=== PATIENT | male | born 1975 | race Caucasian/White ===

== ENCOUNTER 2016-07-20 20:20 | Inpatient (IN) | payer OTHER ==
[~2016-07-20] VITALS: Ht 182.9 cm; Wt 92.0 kg
[~2016-07-20 20:20] MED LIST: ADDERALL XR 1010 MG PO; ADDERALL XR 2020 MG PO; ANAPROX DS550 M1 PO; DEPAKOTE500 MG PO; MOTRIN600 MG PO; NORCO 5/3251 TABLET PO; PRIMATENE MIST15 M1 IH; PROAIR HFA8.5 GM IH; PROMETHAZINE HC25 M1 PO; ROBITUSSIN AC,T10 ML PO; TOPIRAMATE25 MG PO; VENTOLIN17 GM
[2016-07-20 21:17] LABS: BASOPHIL COUNT 0.1 K/uL (0-0.1); CHLORIDE 111 mEq/L (99-109); EOSINOPHIL (%) 2.3 % (0-5); EOSINOPHIL COUNT 0.2 K/uL (0-0.3); HEMATOCRIT 53.1 % (38.0-50.0); IMMATURE GRANULOCYTE (%) 0.5 % (0.0-0.7); IMMATURE GRANULOCYTE COUNT 0.1 K/uL; INSTRUMENT ABS NEUTROPHIL CT 4.5 K/uL; LYMPHOCYTE COUNT 4.1 K/uL (1.0-2.8); MCH 30.7 PG (29.0-34.0); MCHC 34.8 G/DL (30.0-36.0); MCV 88.2 FL (86-99); MEAN PLAT.VOLUME 9.8 uM^3 (9.0-12.4); MONOCYTE (%) 5.8 % (3-12); MONOCYTE COUNT 0.6 K/uL (0-0.8); NEUTROPHIL (%) 47.1 % (45-76); NEUTROPHIL COUNT 4.5 K/uL (1.8-6.4); PLATELET COUNT 349 K/uL (156-360); POTASSIUM 3.5 mEq/L (3.7-5.4); RBC DIS.WIDTH-CV 15.2 % (11.8-14.6); RBC DIS.WIDTH-SD 47.8 % (39-53); RED BLOOD COUNT 6.02 M/uL (4.00-5.50); SODIUM 148 mEq/L (136-147); WHITE BLOOD COUNT 9.6 K/uL (4.1-10.2)
[2016-07-20 21:20] LABS: GLUCOSE 104 mg/dL (70-99)
[2016-07-20 21:21] LABS: ANION GAP 14 MEQ/L (2-14); TOTAL BILIRUBIN 0.5 mg/dL (0.0-1.0)
[2016-07-20 21:22] LABS: SERUM ETHYL ALCOHOL 350 mg/dL
[2016-07-20 21:23] LABS: GFR ESTIMATE (CALCULATED) > 59 mL/min/
[2016-07-20 21:24] LABS: UREA NITROGEN (BUN) 5 mg/dL (9-23)
[2016-07-20 21:26] LABS: CREATINE KINASE 93 IU/L (1-294); TOTAL CK 93 IU/L (1-294)
[2016-07-20 21:32] LABS: CK-MB 0.9 ng/mL (0.0-4.9)
[2016-07-20 22:40] LABS: ALKALINE PHOSPHATASE 81 IU/L (3-129)
[2016-07-20] MEDS ORDERED: NORCO 7.5/321 TABLET PO (22:41)
[2016-07-20] MEDS ORDERED: ZONEGRAN100 MG PO (22:42)
[2016-07-20] MEDS ORDERED: TIZANIDINE HCL4 MG PO (22:42)
[2016-07-21 00:10] VITALS: BP 139/115
[2016-07-21] MEDS ORDERED: ZONEGRAN100 MG PO (17:20)
== END 2016-07-21 00:52 | disposition left against medical advice (07) | DRG 101 ==
LOC: EME 20:20 → EDOF 07-21 00:30
PROVIDERS: Emergency Medicine
DX: G40.909 Epilepsy, unspecified, not intractable, without status epilepticus (principal); F10.239 Alcohol dependence with withdrawal, unspecified; Y90.8 Blood alcohol level of 240 mg/100 ml or more; I10 Essential (primary) hypertension; F90.9 Attention-deficit hyperactivity disorder, unspecified type; J45.909 Unspecified asthma, uncomplicated; F17.210 Nicotine dependence, cigarettes, uncomplicated; G89.29 Other chronic pain; M54.5 Low back pain; Z91.14 Patient's other noncompliance with medication regimen
CPT/HCPCS: 70450; 80053; 81003; 82550; 82553; 83735; 85025; 93005; 94640; 99281; 99285; G0480; J1953; J2060; J3411; J3475; J7030; J7050

== ENCOUNTER 2016-07-21 14:14 | Emergency (ER) | payer OTHER ==
[~2016-07-21] VITALS: Ht 182.9 cm; Wt 95.0 kg
[~2016-07-21 14:14] MED LIST changes: +NORCO 7.5/321 TABLET PO; +TIZANIDINE HCL4 MG PO; +ZONEGRAN100 MG PO
[2016-07-21 15:40] LABS: ADD MIUA? YES; BILIRUBIN NEGATIVE; BLOOD NEGATIVE; COLOR AMBER ((YELLOW)); GLUCOSE (STRIP) NEGATIVE; KETONES 5; LEUKOCYTES TRACE; NITRITE NEGATIVE; PROTEIN (STRIP) 100; SPECIFIC GRAVITY 1.029 (1.000-1.030); UROBILINOGEN 0.2 MG/DL (0.2-1.0)
[2016-07-21 15:52] LABS: BACTERIA RARE /HPF; EPITHELIAL CELLS RARE /HPF; HYALINE CASTS TNTC /LPF; MUCUS 1+ /LPF; RED BLOOD CELLS 0-5 /HPF (0-5); UCUL ADDED? NO; WHITE BLOOD CELLS 15-20 /HPF (0-5)
[2016-07-21 15:53] LABS: ADD MEDTOX COMMENT Y; AMPHETAMINE NEGATIVE (500 ng/mL); BARBITURATES NEGATIVE (200 ng/mL); BENZODIAZEPINES PRESUMPTIVE POSITIVE (150 ng/mL); COCAINE NEGATIVE (150 ng/mL); INTERNAL CONTROLS VALID? YES; METHADONE NEGATIVE (200 ng/mL); METHAMPHETAMINE NEGATIVE (500 ng/mL); OPIATES (MORPHINE) PRESUMPTIVE POSITIVE (100 ng/mL); OXYCODONE PRESUMPTIVE POSITIVE (100 ng/mL); PHENCYCLIDINE NEGATIVE (25 ng/mL); PROPOXYPHENE NEGATIVE (300 ng/mL); THC CANNABINOIDS NEGATIVE (50 ng/mL); TRICYCLIC ANTIDEPRESSANTS NEGATIVE (300 ng/mL)
[2016-07-21 16:10] LABS: CHLORIDE 107 mEq/L (99-109); POTASSIUM 3.6 mEq/L (3.7-5.4); SODIUM 143 mEq/L (136-147)
[2016-07-21 16:12] LABS: GLUCOSE 101 mg/dL (70-99)
[2016-07-21 16:13] LABS: ANION GAP 12 MEQ/L (2-14)
[2016-07-21 16:15] LABS: SERUM ETHYL ALCOHOL 155 mg/dL
[2016-07-21 16:16] LABS: ALKALINE PHOSPHATASE 75 IU/L (3-129); GFR ESTIMATE (CALCULATED) > 59 mL/min/
[2016-07-21 16:17] LABS: UREA NITROGEN (BUN) 5 mg/dL (9-23)
[2016-07-21 16:22] LABS: HEMATOCRIT 46.2 % (38.0-50.0); MCH 30.5 PG (29.0-34.0); MCHC 34.2 G/DL (30.0-36.0); MCV 89.2 FL (86-99); PLATELET COUNT 289 K/uL (156-360); RBC DIS.WIDTH-CV 14.7 % (11.8-14.6); RBC DIS.WIDTH-SD 47.7 % (39-53); RED BLOOD COUNT 5.18 M/uL (4.00-5.50); WHITE BLOOD COUNT 10.6 K/uL (4.1-10.2)
[2016-07-21 16:27] LABS: BENZODIAZEPINES QUANT VALUE 0 NG/ML; BENZODIAZEPINES, URINE SCREEN Negative (200 ng/mL); OPIATES QUANTITATIVE VALUE 0 NG/ML
[2016-07-21] MEDS ORDERED: ZONEGRAN100 MG PO (17:20)
[2016-07-21 17:38] VITALS: BP 166/80
== END 2016-07-21 17:41 | disposition home or self-care (01) ==
LOC: EME 14:14
PROVIDERS: Emergency Medicine
DX: G40.909 Epilepsy, unspecified, not intractable, without status epilepticus (principal); F19.10 Other psychoactive substance abuse, uncomplicated; F10.10 Alcohol abuse, uncomplicated; J45.909 Unspecified asthma, uncomplicated; F17.200 Nicotine dependence, unspecified, uncomplicated
CPT/HCPCS: 80053; 81003; 84999; 85027; 99281; 99285; G0480; J1953; J2405; J7030; J7050